=== PATIENT | male | born 1985 | race Caucasian/White ===

== ENCOUNTER 2018-07-12 18:40 | Emergency (ER) | payer SELFPAY ==
[~2018-07-12] VITALS: Ht 177.8 cm; Wt 79.0 kg
[2018-07-12 18:45] VITALS: BP 159/112
[2018-07-12] MEDS ORDERED: SODIUM CHLORIDE 0.9% 1,000 ML IV ONE (19:09)
== END 2018-07-12 19:13 | disposition left against medical advice (07) ==
LOC: ER 18:59
DX: R00.0 Tachycardia, unspecified (principal)
CPT/HCPCS: 93005; 99283; J7030